=== PATIENT | male | born 1965 | race African-American/Black ===

== ENCOUNTER 2017-03-11 01:06 | Observation (INO) ==
[2017-03-11] MEDS ORDERED: 0.9 % Sodium Chloride 1,000 ML ONE (02:08)
[2017-03-11 02:23] LABS: Eosinophils # 0.1 K/mcL (0.0-0.6); Hematocrit 41.7 % (37.5-50.1); Hemoglobin 13.6 g/dL (12.9-16.9); Mean Corpuscular HGB Conc 32.6 g/dL (31.6-35.5); Mean Corpuscular Hemoglobin 27.5 pg (28.0-33.3); Mean Corpuscular Volume 84.4 fL (83.0-100.0); Mean Platelet Volume 11.5 fL (9.4-12.4); Platelet Count 168 K/mcL (140-400); Red Blood Count 4.94 M/mcL (4.19-5.50); Red Cell Distribution Width 13.9 % (11.5-14.5)
[2017-03-11 02:28] LABS: INR 1.1; Prothrombin Time 11.7 Seconds (9.4-12.1)
[2017-03-11 02:31] LABS: Activated Partial Thrombo Time 25.5 Seconds (26.0-36.0)
[2017-03-11 02:42] LABS: Lymphocytes # 1.5 K/mcL (0.6-4.6); Monocytes # 0.4 K/mcL (0.0-1.3); Neutrophils # 1.5 K/mcL (1.6-8.9); Platelet Estimate Normal (Normal); Reactive Lymphocytes Present (Not Present)
[2017-03-11] MEDS ORDERED: Aspirin 81 MG TAB.CHEW PO ONE (02:51)
--- NOTE | 2017-03-11 02:57 | Emergency Department Note ---
Disposition Clinical Impression: NSTEMI (non-ST elevated myocardial infarction), Abnormal EKG Disposition: Admitted As Inpatient Condition: Good Referrals: NONE,PCP [Primary Care Provider] - Forms: ED Satisfaction Letter, Work/School Release Time of Disposition: 03:38 General Adult HPI - General Chief complaint: ED General Medical Stated complaint: low blood pressure not feeling good Time Seen by Provider: 03/11/17 01:45 Source: patient Mode of arrival: ambulatory Limitations: no limitations Nursing Notes Reviewed: Yes Vital Signs Reviewed: Yes - History of Present Illness HPI Narrative: Patient is a 52-year-old male with a past medical hypertension that presents to the ED with chief complaint hypotension, nausea and diaphoresis. 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 Patient states that another nurse took his blood pressure on the floor and his blood pressure was 80/44. Patient then was sent to the ED to be evaluated. Upon arrival patient's blood pressure was 116/80 and symptoms resolved. Patient denies any chest pain, shortness of breath, weakness, abdominal pain, urinary symptoms or any other symptoms/complaints. Patient states that he was recently diagnosed with influenza A on Thursday. 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 Denies: confusion, chest pain, cough, diaphoresis, fever/chills, headaches, loss of appetite, malaise, rash, seizure, shortness of breath, syncope Treatments Prior to Arrival: none - Related Data Home Medications Medication Instructions Recorded Confirmed Lisinopril [Zestril] 10 mg PO DAILY 03/11/17 03/11/17 Allergies Allergy/AdvReac Type Severity Reaction Status Date / Time No Known Allergies Allergy Verified 03/11/17 01:11 All systems ED: reviewed and negative except as stated. Review of Systems: As Per HPI Constitutional: Reports: weakness (Generalized). Denies: fever, chills Cardiovascular: Denies: chest pain, palpitations, dyspnea on exertion, orthopnea , syncope Respiratory: Reports: cough (Intermittent dry cough). Denies: dyspnea, wheezes , hemoptysis, stridor Gastrointestinal: Reports: nausea. Denies: abdominal pain, vomiting, diarrhea, constipation, hematemesis, melena, hematochezia Genitourinary: Denies: urgency, dysuria, frequency, hematuria Musculoskeletal: Denies: back pain, neck pain Integumentary: Denies: rash Neurological: Reports: weakness (Generalized). Denies: headache, numbness, paresthesias, confusion, abnormal gait, vertigo Past Medical History - Past Medical History Source: patient Medical history: Reports: hypertension, other Psychiatric history: Reports: no psych history - Social History Smoking Status: Never smoker Smokeless Tobacco Status: No Alcohol use: Reports: none Drug use: Reports: none Physical Exam - General Limitations: no limitations General appearance: alert, in no apparent distress - Head Head exam: normal inspection - Eye Eye exam: Present: normal appearance, PERRL, EOMI - ENT ENT exam: normal exam, normal oropharynx, mucous membranes moist - Neck Neck exam: Present: normal inspection, full ROM, trachea midline. Absent: tenderness, meningismus - Chest Chest inspection: Present: normal inspection, symmetric chest wall rise - Respiratory Respiratory exam: Present: normal lung sounds bilaterally. Absent: respiratory distress, wheezes, stridor, accessory muscle use, prolonged expiratory phase - Cardiovascular Cardiovascular exam: Present: regular rate, normal rhythm, normal heart sounds - Abdominal Exam Abdominal exam: Present: soft, Non-Tender - Extremities Exam Extremities exam: Present: normal inspection. Absent: pedal edema - Expanded Lower Extremity Exam Gait: observed and normal - Neurological Exam Neurological exam: Present: alert, oriented X3, CN II-XII intact - Psychiatric Psychiatric exam: Present: normal affect, normal mood - Skin Skin exam: Present: warm, dry, intact, normal color. Absent: rash, cyanosis, diaphoresis Course Course Narrative: Patient is a 52-year-old male with a past medical hypertension that presents to the ED with chief complaint hypotension, nausea and diaphoresis. 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 Patient states that another nurse took his blood pressure on the floor and his blood pressure was 80/44. Patient then was sent to the ED to be evaluated. Upon arrival patient's blood pressure was 116/80 and symptoms resolved. Patient denies any chest pain, shortness of breath, weakness, abdominal pain, urinary symptoms or any other symptoms/complaints. Patient states that he was recently diagnosed with influenza A on Thursday. ASA given. Cardiac workup initiated. EKG shows some mild ST elevation in V1 and V2 V3 and T-wave inversion in V 4 ,5 6 and aVF. Will discuss case with manager clinical research. Trop 0.[address] Galindo. She felt that EKG was not a STEMI. States that patient has diffuse T-wave inversions and recommended that we admit patient to the hospital for trop trending and echo. She also stated that EKG findings may also be caused from the recent influenza A. Plan to admit patient to medicine as Dr. Galindo requested and have them consult cardiology. Pt agrees with treatment plan. Again, patient is denying any pain or symptoms at this time. Non-STEMI protocol was ordered per Dr. Galindo's request. Dr. Sun had [id number] time with patient and agrees with my assessment and treatment plan. Discussed case with hospitalist. He will accept patient. No other request at this time. Patient stable to be transferred to the floor. Vital Signs Temperature 97.8 F 03/11/17 01:07 Pulse Rate 63 03/11/17 01:07 Respiratory Rate 16 03/11/17 01:07 Blood Pressure 116/80 03/11/17 01:07 O2 Sat by Pulse Oximetry 94 03/11/17 01:07 Temperature 97.8 F 03/11/17 01:07 Pulse Rate 80 03/11/17 04:00 Respiratory Rate 16 03/11/17 04:00 Blood Pressure 144/96 03/11/17 04:00 O2 Sat by Pulse Oximetry 98 03/11/17 04:00 Oxygen Delivery Oxygen Delivery Room Air Medical Decision Making - Medical Records Medical records reviewed: Yes I reviewed the patient's medical records. - Lab Data Lab results reviewed: Yes I reviewed the patient's lab results. Result diagrams: 03/11/17 02:16 03/11/17 02:16 Lab Results 03/11/17 03/11/17 03/11/17 Range/Units 02:16 02:16 02:16 WBC 3.5 L (4.3-11.1) K/mcL RBC 4.94 (4.19-5.50) M/mcL Hgb 13.6 (12.9-16.9) g/dL Hct 41.7 (37.5-50.1) % MCV 84.4 (83.0-100.0) fL MCH 27.5 L (28.0-33.3) pg MCHC 32.6 (31.6-35.5) g/dL RDW 13.9 (11.5-14.5) % Plt Count 168 (140-400) K/mcL MPV 11.5 (9.4-12.4) fL Seg Neutrophils % 38.0 % Band Neutrophils % 6.0 H (0-4) % Lymphocytes % 44.0 % Monocytes % 10.0 % Eosinophils % 2.0 % Neutrophils # 1.5 L (1.6-8.9) K/mcL Lymphocytes # 1.5 (0.6-4.6) K/mcL Monocytes # 0.4 (0.0-1.3) K/mcL Eosinophils # 0.1 (0.0-0.6) K/mcL Reactive Lymphocytes Present A (Not Present) Platelet Estimate Normal (Normal) PT 11.7 (9.4-12.1) Seconds INR 1.1 APTT 25.5 L (26.0-36.0) Seconds Sodium 139 (136-145) mEq/L Potassium 3.7 (3.5-4.5) mEq/L Chloride 102 (98-109) mEq/L Carbon Dioxide 28 (19-29) mEq/L BUN 16 (8-26) mg/dL Creatinine 1.47 H (0.72-1.25) mg/dL Est GFR ( Amer) > 60 (> 60) Est GFR (Non-Af Amer) 51 L (> 60) BUN/Creatinine Ratio 11 (6-26) Glucose 131 H (70-99) mg/dL Calculated Osmolality 291 (280-300) Calcium 9.4 (8.6-10.8) mg/dL Troponin I (0-0.03) ng/mL 03/11/17 Range/Units 02:16 WBC (4.3-11.1) K/mcL RBC (4.19-5.50) M/mcL Hgb (12.9-16.9) g/dL Hct (37.5-50.1) % MCV (83.0-100.0) fL MCH (28.0-33.3) pg MCHC (31.6-35.5) g/dL RDW (11.5-14.5) % Plt Count (140-400) K/mcL MPV (9.4-12.4) fL Seg Neutrophils % % Band Neutrophils % (0-4) % Lymphocytes % % Monocytes % % Eosinophils % % Neutrophils # (1.6-8.9) K/mcL Lymphocytes # (0.6-4.6) K/mcL Monocytes # (0.0-1.3) K/mcL Eosinophils # (0.0-0.6) K/mcL Reactive Lymphocytes (Not Present) Platelet Estimate (Normal) PT (9.4-12.1) Seconds INR APTT (26.0-36.0) Seconds Sodium (136-145) mEq/L Potassium (3.5-4.5) mEq/L Chloride (98-109) mEq/L Carbon Dioxide (19-29) mEq/L BUN (8-26) mg/dL Creatinine (0.72-1.25) mg/dL Est GFR ( Amer) (> 60) Est GFR (Non-Af Amer) (> 60) BUN/Creatinine Ratio (6-26) Glucose (70-99) mg/dL Calculated Osmolality (280-300) Calcium (8.6-10.8) mg/dL Troponin I 0.07 H* (0-0.03) ng/mL - Radiology Data Radiology results reviewed: Yes I reviewed the patient's radiology results. - EKG Data EKG #1 EKG shows normal: sinus rhythm Rate: normal Rhythm: NSR [place]/QRS: normal ST segment elevation in: v1, v2, v3 T wave inversions noted in: aVF, v4, v5, v6 When compared to previous EKG there are: previous EKG unavailable Interpretation: nonspecific ST-T wave changes Critical Care Time Critical Care Time: Yes Total Critical Care Time: 35 Attestation: Critical care performed: Time is exclusive of separately billable procedures. Time includes: direct patient care, patient reassessment, coordination of patient care, interpretation of data (laboratory data, radiology data, and respiratory data), review of patient's medical records, medical consultation and documentation of patient care. Procedures included in critical care time: Procedures excluded from critical care time: Attestation Statement - Attestation Attestation: IChino MD, personally evaluated this patient and discussed their management with the midlevel provicer, PAC/CASING MATERIAL WEIGHER. I reviewed the midlevel provider 's note and agree with the documented findings, medical decision making, and plan of care. 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 He denies any chest pain or shortness of breath with the episode. He was sent down to the emergency room for evaluation by the time he arrived in here his blood pressure is back to normal and he felt much better. He recently was diagnosed with influenza. On examination patient is a well-developed well-nourished male in no acute distress. He is alert and oriented 3. There is no diaphoresis. Chest is nontender to palpation. Breath sounds are clear and equal bilaterally. Heart regular rate and rhythm. Abdomen soft and nontender with normal bowel sounds. Chest x-ray negative. EKG shows ST segment elevation in V1 and V2 and V3 with T -wave inversions in V4 V5 and V6. Also inferior T-wave inversions. EKG was reviewed by the section chief on-call who recommended admission and trending of troponin with NSTEMI treatment. Initial troponin was elevated at 0.07. Patient placed on heparin infusion. We will consult the hospitalist for admission.
[2017-03-11] MEDS ORDERED: *HR* Heparin 5,000 UNIT/ML VIAL IVP PRN ×2 (02:58)
[2017-03-11] MEDS ORDERED: *HR* Heparin 5,000 UNIT/ML VIAL IVP ONE (02:58)
[2017-03-11] MEDS ORDERED: Heparin 25,000 UNIT/500 ML D5W 25,000 UNIT/500 ML MLS IVC SCH (03:00)
[2017-03-11 03:07] LABS: BUN/Creatinine Ratio 11 (6-26); Blood Urea Nitrogen 16 mg/dL (8-26); Calcium 9.4 mg/dL (8.6-10.8); Carbon Dioxide 28 mEq/L (19-29); Chloride 102 mEq/L (98-109); Glucose 131 mg/dL (70-99); Osmolality,Calculated 291 (280-300); Potassium 3.7 mEq/L (3.5-4.5); Sodium 139 mEq/L (136-145); eGFR For African Americans > 60 (> 60); eGFR For Non-African Americans 51 (> 60)
--- NOTE | 2017-03-11 04:43 | Internal Med History&Physical ---
Date of Encounter: 03/11/17 Time of Encounter: 04:40 Assessment and Plan (1) NSTEMI (non-ST elevated myocardial infarction) Current visit: Yes Status: Acute Troponin slightly elevated no chest pain but there are EKG changes. Cardiology is consulted. This could be secondary to abnormal renal function versus due to viral infection. Repeat troponins checked echocardiogram. (2) SELMA (acute kidney injury) Current visit: Yes Status: Acute Creatinine is 1.47. Patient says it has been up in the past also as he uses testosterone patch. (3) Dehydration Current visit: Yes Status: Acute Recent influenza A with nausea vomiting diarrhea. We will give patient a fluid trial. (4) Dizziness Current visit: Yes Status: Acute Perhaps related to vasovagal phenomena including bradycardia hypotension which corrected to spontaneously as he was supine. IV fluids will be given. (5) Hypotension Current visit: Yes Status: Acute Perhaps secondary to vasovagal phenomena as blood pressures corrected now. Will give IV fluids. Check orthostatic blood pressure Qualifiers: Hypotension type: unspecified hypotension type Qualified Code(s): I95.9 - Hypotension, unspecified Internal Medicine - H&P: HPI Chief complaint: Hypotension Admitted From: Home Plans for Post Hospital Care: Home History of present illness: Mr. Chopra is a 52 year old male past medical history significant for hypertension presented to ER with an episode of dizziness diaphoresis and hypotension along with bradycardia while he was at work. 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 He sat down and had his blood pressure checked which was reported as 80/44 with a heart rate in 50s. He was sent to ER where his blood pressure was noted 116/80 with a heart rate 88. He denies any chest pain shortness of breath palpitation or syncopal episode abdominal pain nausea vomiting diarrhea dysuria urgency frequency or hematuria and hematochezia hematemesis melena or any other symptoms otherwise. Apparently patient was diagnosed with influenza A on Thursday. He had some nausea vomiting diarrhea. However his fever broke down by Thursday therefore he decided to come to work. 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 Ever since he is not ER he is feeling better. He takes lisinopril for his blood pressure and usually his heart rate is in 60s. No other complaints otherwise. His EKG was noted abnormal and it was sent to final tester. His troponins are 0.07. Cardiology has recommended to admit him as non-STEMI. Past Med Surg Social Fam HX - Past Medical History Medical history: hypertension, other Psychiatric history: no psych history - Social History Smoking Status: Never smoker Smokeless Tobacco Status: No Alcohol use: none Drug use: none Internal Medicine - H&P: Meds Lisinopril [Zestril] 10 mg PO DAILY 03/11/17 [History] 3 Allergy/AdvReac Type Severity Reaction Status Date / Time No Known Allergies Allergy Verified 03/11/17 01:11 All Systems PM: A 10-system review of systems was performed and is negative for pertinent findings except as documented above in the HPI. - Constitutional Constitutional: no chills, no fever(s), no night sweats - EENT Eyes: no change in vision, no discharge, no pain, no photophobia Ears: no ear discharge, no ear pain, no tinnitus Nose, mouth and throat: no dysphagia, no nasal discharge, no neck pain, no sore throat - Cardiovascular Cardiovascular ROS IM: no chest pain, no diaphoresis, no dyspnea, no lightheadedness, no palpitations, no syncope - Respiratory Respiratory: no cough, no dyspnea, no wheezing, no excessive phlegm production - Gastrointestinal Gastrointestinal: no abdominal pain, no diarrhea, no hematemesis, no hematochezia, no melena, no nausea, no vomiting - Musculoskeletal Musculoskeletal ROS IM: no numbness, no tingling - Integumentary Integumentary IM: no rash, no unusual bruising - Neurological Neurological ROS: no confusion, no convulsions, no focal weakness, no numbness, no tingling, no tremor(s) - Hematologic/Lymphatic Hematologic/Lymphatic: no easy bruising - Constitutional Vitals: Temp Pulse Resp BP Pulse Ox 97.8 F 80 16 135/81 98 03/11/17 01:07 03/11/17 04:00 03/11/17 04:30 03/11/17 04:30 03/11/17 04:00 General appearance: Present: A&O X 3, no acute distress, answers questions appropriately - Head Head exam: Present: atraumatic, normocephalic - Eye Eye exam: Present: PERRL, conjuntiva pink, sclera anicteric Pupils: Present: PERRL - Neck Neck exam general surgery: Present: supple, trachea midline. Absent: lymphadenopathy - Respiratory Respiratory exam: Present: CTAB. Absent: accessory muscle use, rales, rhonchi, wheezes - Cardiovascular Cardiovascular exam: Present: RRR, +S1, +S2. Absent: diastolic murmur, gallop, rubs, systolic murmur - GI/Abdominal GI/Abdominal exam: Present: normal bowel sounds, soft, no peritoneal signs. Absent: distended, tenderness - Extremities Exam Extremities exam: Present: warm, radial pulses palpable and symmetrical. Absent : calf tenderness, cyanotic, pedal edema - Neurological Exam Neurological exam: Present: alert, oriented X3, no focal deficits. Absent: pronater drift, facial droop, speech deficit - Skin Skin exam: Present: dry, intact Internal Med - H&P Results - Labs CBC & Chem 7: 03/11/17 02:16 03/11/17 02:16
[2017-03-11] MEDS ORDERED: Naloxone 0.4 MG/ML INJ IVP PRN (04:49)
[2017-03-11] MEDS ORDERED: Acetaminophen 325 MG TABLET PO PRN (04:49)
[2017-03-11] MEDS ORDERED: Ondansetron 4 MG/2 ML VIAL IVP PRN (04:49)
[2017-03-11] MEDS: 0.9 % Sodium Chloride 1,000 ML IVC SCH ×2 (05:16→12:16)
[2017-03-11 05:37] LABS: Alanine Aminotransferase 32 Units/L (0-55); Albumin 3.6 g/dL (3.5-5.0); Albumin/Globulin Ratio 0.9 (1.1-2.2); Alkaline Phosphatase 33 Units/L (38-126); Aspartate Amino Transferase 33 Units/L (5-34); BUN/Creatinine Ratio 11 (6-26); Bilirubin,Total 0.8 mg/dL (0.2-1.2); Blood Urea Nitrogen 15 mg/dL (8-26); Calcium 9.2 mg/dL (8.6-10.8); Carbon Dioxide 28 mEq/L (19-29); Chloride 104 mEq/L (98-109); Globulin 4.1 g/dL (2.4-3.5); Glucose 104 mg/dL (70-99); Magnesium 1.8 mg/dL (1.6-2.6); Osmolality,Calculated 291 (280-300); Potassium 4.5 mEq/L (3.5-4.5); Sodium 140 mEq/L (136-145); Total Protein 7.7 g/dL (6.0-8.3); eGFR For African Americans > 60 (> 60); eGFR For Non-African Americans 56 (> 60)
[2017-03-11] MEDS ORDERED: Aspirin 81 MG TAB.CHEW PO SCH (09:00)
--- NOTE | 2017-03-11 10:47 | Cardiology Consult Note ---
Date of Encounter: 03/11/17 Time of Encounter: 10:45 - Attending Attestation I have personally performed a face to face evaluation on this patient. I have reviewed and agree with the care plan. 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 He was found to be hypotensive with SBP 80's and bradycardic. By the time he arrived to the ER , he was feeling better and HR/BP normalized. Should be noted that he was diagnosed with influenza over the weekend and had reduced oral intake. At the bedside, he is feeling much better and has no present complaints. Exam: Vital signs reviewed. Agree with Exam findings documented by INSTRUCTOR ADJUNCT SURGICAL TECHNICIAN. Impression: 1. Elevated troponin: Borderline troponin elevation in setting of dehydration from poor oral intake resulting from the Flu. The patient states that ECG abnormalities we are observing are not new. He denies any chest pain. Echo returned with normal findings. He feels better after receiving IV fluids. Renal function has improved. Patient would like to go home. Recommend close outpatient cardiology follow up. Continue low dose aspirin. Lipid panel as outpatient. Can consider outpatient stress testing. Will sign off. Please call with questions. Assessment and Plan (1) Elevated troponin Current Visit: Yes Status: Acute Mild troponin elevation, 0.07, 0.05 in the setting of dehydration, and SELMA. EKG with diffuse t wave inversion. Non-specific finding. Reports history of abnormal EKG over 10 years ago at out-side facility. Denies chest pain. Agree with echocardiogram. On heparin gtt. D/c if no abnormal finding on TTE. (2) Dizziness Current Visit: Yes Status: Acute Likely vasovagal response to cough and nausea in the setting of dehydration. Telemetry review shows no significant bradycardia. Normotensive during his stay. Recommend hydration. TTE pending. Discussion w patient/family: The assessment and plan as outlined above was discussed with the patient and/or family members who expressed understanding and agreement. All questions were answered. Thank you for involving us in the care of your patient. Please call with any questions. History of Present Illness Consult date: 03/11/17 Requesting physician: Tiffanie Salinas Consult reason: Abnormal EKG, elevated troponin Chief complaint: Dizziness, nausea History of present illness: Mr. Chopra is a 52 year old male with a history of hypertension and LEIGH treated with surgery who presented from his place of work with hypotension. 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 He states he suddenly became dizzy, developed nausea, and felt the sudden urge to go to the bathroom. He Started sweating and sat down. The nursing staff checked his blood pressure and it was 80/50. His HR was noted to be in the 50's. He was taken to the ER by wheelchair. By the time he arrived to the ER he was feeling somewhat better and b/p improved to 116/60, HR 65. He reports having the flu over the weekend. he was swabbed last thursday and found to have influenza A. His last fever was thursday night. He c/o cough and a tickle in his throat that continues. He did not eat or drink well over the weekend. Denies chest pain or SOB. Cardiology consulted for abnormal EKG and mildly elevated troponin. He reports abnormal EKG seen 15 years ago suggesting his heart was enlarged. He did under go echocardiogram at that time that showed some mild enlargement of his heart. Prior to this weekend he denies symptoms. Reports he is very active and works out at the gym. Past Med Surg Social Fam HX - Past Medical History Medical history: hyperlipidemia, hypertension, other Psychiatric history: no psych history - Social History Smoking Status: Never smoker Smokeless Tobacco Status: No Alcohol use: none Drug use: none Medications and Allergies Lisinopril/Hydrochlorothiazide [Zestoretic 20-25 mg Tablet] 1 tab PO DAILY 03/11 [History] 3 Allergy/AdvReac Type Severity Reaction Status Date / Time No Known Allergies Allergy Verified 03/11/17 01:11 All Systems Review: A 10-system review of systems was performed and is negative for pertinent findings except as documented above in the HPI. Physical Examination Vital Signs, Last 4 Hours Temp Pulse Resp BP Pulse Ox 03/11/17 08:00 79 03/11/17 07:27 98.2 F 69 17 113/60 100 General: Conversant, No Apparent Distress HEENT: Atraumatic, Normocephaly, Mucus Membranes Moist Neck: No JVD, Normal carotid pulses Cardiac: Reg Rate and Rhythm, Normal S1 and S2, No Murmur Lungs: Normal Breath Sounds, No Wheeze, Rales, Rhonchi Neuro: Alert and responsive, No focal deficits noted Abdomen: Soft, Non-Tender Skin: No rashes noted on visualized skin Musculoskeletal: No Chest Wall Tenderness Extremities: No Clubbing, No Cyanosis, No Edema, Normal Pulses Results 03/11/17 02:16 03/11/17 05:07 Lab Results 03/11/17 03/11/17 03/11/17 05:07 05:07 09:50 APTT Sodium 140 Potassium 4.5 Chloride 104 Carbon Dioxide 28 BUN 15 Creatinine 1.34 H Glucose 104 H Calcium 9.2 Magnesium 1.8 Total Bilirubin 0.8 AST 33 ALT 32 Alkaline Phosphatase 33 L Troponin I 0.05 H* 0.04 H* 03/11/17 09:50 APTT 50.0 H D Sodium Potassium Chloride Carbon Dioxide BUN Creatinine Glucose Calcium Magnesium Total Bilirubin AST ALT Alkaline Phosphatase Troponin I - Imaging and Cardiology Echo: pending - EKG Interpretation EKG results cardiology: personally reviewed Consult Discharge Plan - Plan Referrals: NONE,PCP [Primary Care Provider] -
--- NOTE | 2017-03-11 18:47 | Discharge Summary ---
Date of Encounter: 03/11/17 Time of Encounter: 10:00 - Discharge Diagnosis (1) SELMA (acute kidney injury) Priority: Secondary Status: Acute (2) Dehydration Priority: Primary Status: Acute - Discharge Medications Home Medications: Lisinopril/Hydrochlorothiazide [Zestoretic 20-25 mg Tablet] 1 tab PO DAILY 03/11 [History] Allergies/Adverse Reactions: 3 Allergy/AdvReac Type Severity Reaction Status Date / Time No Known Allergies Allergy Verified 03/11/17 01:11 Procedures/tests Complete & Pending: Procedures Performed prior 72 hours Category Date Time Status EKG [ECG 12 lead ECG] [ECG] Stat Y 03/11/17 12:55 Ordered EV echocardiogram Routine Y 03/11/17 04:54 Completed Date of admission: 03/11/17 04:20 Primary care physician: PCP NONE Consults: 03/11/17 04:52 Consult to Physician [CONS] Routine Consulting Provider: Miah Connors Reason for Consult: Positive troponin. ER has already informed the manufacturing technologist Time Notified: 04:53 Call Completed: Yes - Patient Status Disposition: Home, Self-Care Condition: Good - Discharge Instructions Follow Up With: NONE,PCP [Primary Care Provider] - Hospital course: Mr. Chopra is a 52 year old male - Time Spent with Patient Total time spent providing and/or coordinating discharge services: - Constitutional Vitals: Temp Pulse Resp BP Pulse Ox 98.5 F 71 16 122/79 99 03/11/17 16:20 03/11/17 16:20 03/11/17 16:20 03/11/17 16:20 03/11/17 16:20 General appearance: Present: A&O X 3, no acute distress, answers questions appropriately - Respiratory Respiratory exam: Present: CTAB. Absent: accessory muscle use, rales, rhonchi, wheezes - Cardiovascular Cardiovascular exam: Present: RRR, +S1, +S2. Absent: diastolic murmur, gallop, rubs, systolic murmur
[2017-03-11 19:49] VITALS: BP 143/94
--- NOTE | 2017-03-11 20:30 | Electrocardiograph Report ---
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
--- NOTE | 2017-03-12 20:07 | Electrocardiograph Report ---
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
== END 2017-03-11 19:54 | disposition home or self-care (01) ==
LOC: 2NNU 01:06 → EMEROO 01:06 → SUATTDRO 04:20 → 2NNU 04:45
PROVIDERS: ADMIT Internal Medicine; ATTEND Hospitalist